=== PATIENT | female | born 1995 | race Two or more races ===

== ENCOUNTER 2023-05-11 00:44 | Emergency (ER) | payer OTHER ==
[~2023-05-11] VITALS: Ht 177.8 cm; Wt 119.7 kg
[2023-05-11 02:02] LABS: Urine Bacteria NONE SEEN /hpf (None Seen); Urine Blood Negative /uL (Negative); Urine Hyaline Cast FEW /lpf (0 - 2); Urine Mucus FEW (None Seen); Urine Specific Gravity 1.033 (1.001-1.035); Urine WBC 2 /hpf (0 - 5)
[2023-05-11] MEDS ORDERED: KETOROLAC TROMETH 60MG/2ML VIAL IM ONE (03:45)
[2023-05-11] MEDS ORDERED: IBUP-1456 PO (03:48)
[2023-05-11] MEDS ORDERED: CYCL-837 PO (03:48)
[2023-05-11] MEDS ORDERED: CEPH500C PO (03:58)
[2023-05-11 05:30] VITALS: BP 132/64; PULSE 82; RESP 18; TEMP 98.2; O2SAT 97
== END 2023-05-11 05:52 | disposition home or self-care (01) ==
LOC: ER 00:44
DX: S39.012A Strain of muscle, fascia and tendon of lower back, initial encounter (principal); N39.0 Urinary tract infection, site not specified; X50.0XXA Overexertion from strenuous movement or load, initial encounter; Y93.89 Activity, other specified; Y92.89 Other specified places as the place of occurrence of the external cause; Y99.8 Other external cause status
CPT/HCPCS: 81001; 81025; 96372; 99283; J1885